=== PATIENT | male | born 2000 | race Hispanic/Latino ===

== ENCOUNTER 2022-01-10 14:54 | Emergency (ER) | payer OTHER, SELFPAY ==
--- NOTE | ~2022-01-10 | XR_ITS ---
EXAMINATION: XR chest 1V portable Exam Date/Time: 01/10/2022 16:12 CDT HISTORY: fever, cough, COVID PUI Comparison: None available. RESULT: Lines, tubes, and devices: None. Lungs and pleura: Clear. Cardiomediastinal silhouette: Unremarkable. Other: No acute osseous or upper abdominal finding. IMPRESSION: No acute cardiopulmonary process. Reviewed, dictated and finalized at location [facility].
[2022-01-10 15:02] VITALS: BP 125/87; PULSE 94; RESP 14; TEMP 36.9; O2SAT 99
--- NOTE | 2022-01-10 15:57 | ED.URI ---
HPI - URI/Sore Throat General Chief Complaint: Upper Respiratory Infection Stated Complaint: cold symptoms Time Seen by Provider: 01/10/22 15:29 Source: patient Mode of arrival: ambulatory Limitations: no limitations History of Present Illness HPI Narrative: This is a 21-year-old male that presents to the emergency department for cold symptoms present since last night. Reports cough, headache, and fever. Reports contact with someone who is COVID positive. He is COVID positive. Denies shortness of breath. Related Data Allergies Allergy/AdvReac Type Severity Reaction Status Date / Time No Known Allergies Allergy Verified 01/10/22 16:19 Review of Systems Review of Systems: CONSTITUTIONAL: Denies fever ENT: Reports congestion CARDIOVASCULAR: Denies chest pain RESPIRATORY: Reports cough. Denies dyspnea. All systems reviewed & are unremarkable except as noted in HPI and below PMFSH Past Medical History Medical History (Updated 01/10/22 @ 17:23 by Emilie Paris PA-C) No active medical problems Social History Social History (Updated 01/10/22 @ 16:01 by Emilie Paris PA-C) Smoking status: Never smoker Exam Narrative: GENERAL: Well-appearing, well-nourished, and in no acute distress. HEAD: Normocephalic, atraumatic. EYES: EOMI. ENT: Nares clear, no rhinorrhea or epistaxis. Mucous membranes moist. Oropharynx without tonsillar hypertrophy exudate or other lesions. NECK: Supple. No adenopathy or masses CHEST: Clear to auscultation. No respiratory distress. No wheezes rales or rhonchi HEART: Regular rate and rhythm. No murmur heard. Normal peripheral pulses. EXTREMITIES: Normal range of motion. No edema. SKIN: Warm, dry, no rash. NEURO: No focal deficits. Alert and oriented x3. PSYCH: Normal mood and affect Course Vital Signs Vital signs: Vital Signs Temperature 98.4 F 01/10/22 15:02 Pulse Rate 94 01/10/22 15:02 Respiratory Rate 14 01/10/22 15:02 Blood Pressure 125/87 01/10/22 15:02 Pulse Oximetry 99 01/10/22 15:02 Oxygen Delivery Room Air 01/10/22 15:02 Temperature 98.4 F 01/10/22 15:02 Pulse Rate 94 01/10/22 15:02 Respiratory Rate 14 01/10/22 15:02 Blood Pressure 125/87 01/10/22 15:02 Pulse Oximetry 99 01/10/22 15:02 Oxygen Delivery Room Air 01/10/22 15:02 MDM - URI/Sore Throat MDM Narrative Medical decision making narrative: Patient presents to the emergency department for cold symptoms present since yesterday. He is afebrile and nontoxic-appearing. Oxygen saturation is normal on room air. Lungs are clear on exam. CBC and metabolic panel without concerning findings. Chest x-ray without acute cardiopulmonary abnormality. COVID swab did come back positive. Patient is vaccinated. He does wish to be treated with Paxlovid. He is stable and felt appropriate for further outpatient evaluation. He was given warnings to return to the ER Lab Data Attestation: I reviewed the patient's lab results. Result diagrams: 01/10/22 16:21 01/10/22 16:21 Labs: Lab Results 01/10/22 01/10/22 01/10/22 Range/Units 16:21 16:21 16:21 WBC 7.1 (4.5-10.0) K/mm3 RBC 5.14 (4.6-6.20) M/mm3 Hgb 15.2 (14.0-18.0) g/dL Hct 44.9 (42.0-52.0) % MCV 87.4 (80-100) fl MCH 29.6 (26-34) pg MCHC 33.9 (32-36) g/dl RDW 12.4 (11.5-14.5) % Plt Count 267 (150-375) k/mm3 MPV 9.8 (7.4-10.4) fl Immature Gran % (Auto) 0.4 (0-0.5) % Neut % (Auto) 65.1 (45.5-73.1) % Lymph % (Auto) 20.9 (18.3-44.2) % [place] % (Auto) 10.8 H (2.6-8.5) % Eos % (Auto) 1.7 (0-4.4) % Baso % (Auto) 1.1 (0.2-1.2) % Lymph # (Auto) 1.49 (0.9-3.2) K/mm3 [place] # (Auto) 0.8 H (0.1-0.6) K/mm3 Eos # (Auto) 0.1 (0-0.3) K/mm3 Baso # (Auto) 0.1 (0.0-0.1) K/mm3 Abs Immat Gran (auto) 0.03 (0.00-0.031) K/mm3 Absolute Neuts (auto) 4.7 (1.3-6.7) K/mm3 Absolute Nucleated RBC 0.0 (0.0-0.012
[2022-01-10] MEDS: ACETAMINOPHEN 500 MG TABLET 1000 MG PO (16:19)
[2022-01-10 16:34] LABS: Basophils Absolute Auto 0.1 K/mm3 (0.0-0.1); Basophils Percent Auto 1.1 % (0.2-1.2); Eosinophils Absolute Auto 0.1 K/mm3 (0-0.3); Eosinophils Percent Auto 1.7 % (0-4.4); Hematocrit 44.9 % (42.0-52.0); Hemoglobin 15.2 g/dL (14.0-18.0); Immature Granulocyte Absolute 0.03 K/mm3 (0.00-0.031); Immature Granulocyte Percent A 0.4 % (0-0.5); Lymphocytes Absolute Auto 1.49 K/mm3 (0.9-3.2); Lymphocytes Percent Auto 20.9 % (18.3-44.2); Mean Corpuscular HGB Conc 33.9 g/dl (32-36); Mean Corpuscular Hemoglobin 29.6 pg (26-34); Mean Corpuscular Volume 87.4 fl (80-100); Mean Platelet Volume 9.8 fl (7.4-10.4); Monocytes Absolute Auto 0.8 K/mm3 (0.1-0.6); Monocytes Percent Auto 10.8 % (2.6-8.5); Neutrophils Absolute Auto 4.7 K/mm3 (1.3-6.7); Neutrophils Percent Auto 65.1 % (45.5-73.1); Platelet Count Result 267 k/mm3 (150-375); Red Blood Count 5.14 M/mm3 (4.6-6.20); Red Cell Distribution Width 12.4 % (11.5-14.5); White Blood Count 7.1 K/mm3 (4.5-10.0)
[2022-01-10 16:41] LABS: Anion Gap 13 mmol/L (8-16); Blood Urea Nitrogen 12 mg/dL (9-20); Calcium 9.7 mg/dL (8.4-10.2); Carbon Dioxide 29 mmol/L (22-30); Chloride 99 mmol/L (98-107); Estimated CRCL calculation 98 ml/min; Estimated Glomerular Filt Rate > 60; Glucose 101 mg/dL (65-110); Potassium 3.8 mmol/L (3.4-5.0); Sodium 141 mmol/L (137-145)
[2022-01-10 17:11] LABS: Influenza A QL RT-PCR Negative (Negative); Influenza B QL RT-PCR Negative (Negative); SARS-CoV-2 RNA PCR Positive
[2022-01-10 17:32] VITALS: BP 142/86; PULSE 94; RESP 18; O2SAT 98
== END 2022-01-10 17:51 | disposition home or self-care (01) ==
PROVIDERS: Physician Assistant; Emergency Provider Emergency Medicine
DX: U07.1 COVID-19 (principal)
CPT/HCPCS: 36415; 71045; 80048; 85025; 87502; 99283; A9270; C9803; U0003; U0005